=== PATIENT | female | born 1980 | race Caucasian/White ===

== ENCOUNTER 2018-07-26 13:53 | Emergency (ER) | payer OTHER ==
[2018-07-26 13:57] VITALS: TEMP 98.4
[2018-07-26] MEDS ORDERED: ceFAZolin 1,000 MG VIAL IM STA (14:49)
--- NOTE | 2018-07-26 14:57 | ED ---
General Adult HPI - General Chief complaint: Wound/Laceration Stated complaint: thumb lac/infection Time Seen by Provider: 07/26/18 14:33 Source: patient, RN notes reviewed Mode of arrival: ambulatory Limitations: no limitations - History of Present Illness Initial comments: This a 38-year-old female who denies any past medical history presenting today for chief complaint of redness of right thumb x 3 days. Patient states that last Thursday she had cut the lateral aspect of her right thumb along the ventral surface. She stated that with deep enough for sutures and did not seek medical attention. On Thursday she noticed itchiness, redness and warmth around the area of the lacerations, since area of the redness is spreading. She noticed the redness for the upper arm she was concerned for infection and decided percent to emergency department today. Patient denies any fever, chills, general malaise, drainage or abscess. Remainder of ROS (-). - Related Data Previous Rx's Medication Instructions Recorded Cephalexin [Keflex] 500 mg PO Q6HR 7 Days #28 cap 07/26/18 Allergies Allergy/AdvReac Type Severity Reaction Status Date / Time No Known Allergies Allergy Verified 07/26/18 15:19 Review of Systems ROS Statement: Those systems with pertinent positive or pertinent negative responses have been documented in the HPI. ROS Other: All systems not noted in ROS Statement are negative. Constitutional: Denies: fever, chills, weakness Respiratory: Denies: cough, dyspnea Cardiovascular: Denies: chest pain Gastrointestinal: Denies: abdominal pain, nausea, vomiting Genitourinary: Denies: urgency, dysuria Musculoskeletal: Denies: back pain Skin: Reports: as per HPI Neurological: Denies: headache, weakness, numbness, paresthesias, confusion Past Medical History Past Medical History: No Reported History History of Any Multi-Drug Resistant Organisms: None Reported Past Surgical History: No Surgical Hx Reported Past Psychological History: No Psychological Hx Reported Smoking Status: Current every day smoker Past Alcohol Use History: Occasional Past Drug Use History: None Reported General Exam - General Exam Comments Initial Comments: General: The patient is awake and alert, in no distress, and does not appear acutely ill. Eye: Pupils are equal, round and reactive to light, extra-ocular movements are intact. No nystagmus. There is normal conjunctiva bilaterally. No signs of icterus. Ears, nose, mouth and throat: There are moist mucous membranes and no oral lesions. Neck: The neck is supple, there is no tenderness or JVD. Cardiovascular: There is a regular rate and rhythm. No murmur, rub or gallop is appreciated. Respiratory: Lungs are clear to auscultation, respirations are non-labored, breath sounds are equal. No wheezes, stridor, rales, or rhonchi. Musculoskeletal: Normal ROM, no tenderness. Strength 5/5. Sensation intact. Pulses equal bilaterally 2+. Neurological: A&O x 3. CN II-XII intact, There are no obvious motor or sensory deficits. Coordination appears grossly intact. Speech is normal. Skin: Skin is warm and dry and no rashes or lesions are noted. Psychiatric: Cooperative, appropriate mood & affect, normal judgment. Limitations: no limitations Course Vital Signs 07/26/18 07/26/18 13:55 15:18 Temperature 98.4 F 98.4 F Pulse Rate 108 H 88 Respiratory 20 16 Rate Blood Pressure 145/84 137/81 O2 Sat by Pulse 100 99 Oximetry Medical Decision Making - Medical Decision Making 38yo with cc of erythema s/p laceration concerning for cellulitis. Upon physical examination there appears to be a laceration to the ventral aspect of the right thumb with surrounding erythema that is spreading towards the proximal forearm. Pt denies systemic symptoms. Pt VS stable. Repeat HR 88 after initial 106. Case discussed with Dr. Tate. Pt given 2g cefazolin IM and will be discharged with RX for bactrim ds q12h and keflex TID for staph and strep coverage. Pt was instructed to return to the ED for any fever, chills, nightsweats, rapid spread of infection. Pt agreed with plan. All patient's questions were answered to the best of my ability and patient was discharged in stable condition with PCP f/u in 1-2 days. Disposition Clinical Impression: Cellulitis of thumb, right Disposition: HOME SELF-CARE Condition: Good Instructions: Cellulitis (ED) Additional Instructions: Please use medication as discussed. Please follow-up with family doctor in the next 2 days. Please return to emergency room if the symptoms increase or worsen or for any other concerns, as discussed including rapidly progressing spread of erythema, fever, chills. Prescriptions: Cephalexin [Keflex] 500 mg PO Q6HR 7 Days #28 cap Is patient prescribed a controlled substance at d/c from ED?: No Referrals: Marisol Marsh DO [Primary Care Provider] - 1-2 days Time of Disposition: 14:56
[2018-07-26 15:19] VITALS: BP 137/81; PULSE 88; RESP 16
== END 2018-07-26 15:45 | disposition home or self-care (01) ==
LOC: EC 13:53
DX: L03.011 Cellulitis of right finger (principal); F17.200 Nicotine dependence, unspecified, uncomplicated
CPT/HCPCS: 99282; 96372; J0690

== ENCOUNTER 2018-08-03 08:53 | Observation (INO) | payer OTHER ==
[2018-08-03] MEDS ORDERED: ASPIRIN 81 MG PO STA (09:26)
[2018-08-03] MEDS ORDERED: NITROGLYCERIN OINT 1 INCH/GM PACKET TOPICAL STA (09:26)
--- NOTE | 2018-08-03 09:29 | ED ---
General Adult HPI - General Chief complaint: Chest Pain Stated complaint: Chest pain Time Seen by Provider: 08/03/18 09:05 Source: patient, RN notes reviewed Mode of arrival: wheelchair Limitations: no limitations - History of Present Illness Initial comments: Patient is a pleasant 38-year-old female presenting to the emergency Department with complaints of chest discomfort. Onset of symptoms was for 5 days ago. Symptoms have been intermittent. Discomfort became more severe earlier this morning. Discomfort has improved and is now mild. Discomfort feels like pressure in the left chest. Discomfort is somewhat worse with deep inspiration. There is some associated nausea. No diaphoresis. No dyspnea. Patient did have some tingling in her right hand earlier. No history of similar symptoms previously. No fevers. No rash. Patient did have an infection of her right hand a couple weeks ago with streaking up the arm however that has resolved. - Related Data Home Medications Medication Instructions Recorded Confirmed Aspirin EC [Ecotrin] 325 mg PO ONCE PRN 08/03/18 08/03/18 Sulfamethox-Tmp 800-160Mg [Bactrim 1 tab PO Q12HR 08/03/18 08/03/18 DS 800-160 mg] Previous Rx's Medication Instructions Recorded Cephalexin [Keflex] 500 mg PO Q6HR 7 Days #28 cap 07/26/18 Allergies Allergy/AdvReac Type Severity Reaction Status Date / Time No Known Allergies Allergy Verified 08/03/18 09:19 Review of Systems ROS Statement: Those systems with pertinent positive or pertinent negative responses have been documented in the HPI. ROS Other: All systems not noted in ROS Statement are negative. Constitutional: Denies: fever, chills Eyes: Denies: eye pain ENT: Denies: ear pain Respiratory: Denies: cough, dyspnea Cardiovascular: Reports: chest pain Endocrine: Denies: fatigue Gastrointestinal: Reports: nausea. Denies: abdominal pain Genitourinary: Denies: dysuria Musculoskeletal: Denies: back pain Skin: Denies: rash Neurological: Denies: weakness Past Medical History Past Medical History: No Reported History History of Any Multi-Drug Resistant Organisms: None Reported Past Surgical History: No Surgical Hx Reported Past Psychological History: No Psychological Hx Reported Smoking Status: Current every day smoker Past Alcohol Use History: Occasional Past Drug Use History: None Reported General Exam Limitations: no limitations General appearance: alert, in no apparent distress Head exam: Present: atraumatic Eye exam: Present: normal appearance Neck exam: Present: normal inspection Respiratory exam: Present: normal lung sounds bilaterally. Absent: chest wall tenderness Cardiovascular Exam: Present: regular rate, normal rhythm Expanded Peripheral pulses: 2+: Radial (R), Radial (L), Dorsalis Pedis (R), Dorsalis Pedis (L) GI/Abdominal exam: Present: soft. Absent: tenderness Extremities exam: Present: normal inspection. Absent: pedal edema, calf tenderness Neurological exam: Present: alert Psychiatric exam: Present: normal affect, normal mood Skin exam: Present: normal color, other (There is a small healing wound on the right thumb). Absent: rash Course Vital Signs 08/03/18 08/03/18 09:01 10:26 Temperature 98.3 F Pulse Rate 98 84 Respiratory 18 18 Rate Blood Pressure 145/89 123/62 O2 Sat by Pulse 98 98 Oximetry EKG Findings - EKG Comments: EKG Findings:: Normal sinus rhythm 93. AR 132. QRS 88. QT 362. QTC 450. Cash. RSR V1 and V2. No acute ST change. Medical Decision Making - Medical Decision Making Patient reevaluated and resting comfortably in bed. Patient is still having some discomfort. Patient and family updated on results and plan. Case discussed in detail with Dr. Marie, who will admit for Dr. Marsh. - Lab Data Result diagrams: 08/03/18 09:18 08/03/18 09:18 Lab Results 08/03/18 08/03/18 08/03/18 Range/Units 09:18 09:18 09:18 WBC 12.7 H (3.8-10.6) k/uL RBC 4.10 (3.80-5.40) m/uL Hgb 13.9 (11.4-16.0) gm/dL Hct 43.4 (34.0-46.0) % MCV 105.9 H (80.0-100.0) fL MCH 34.0 (25.0-35.0) pg MCHC 32.1 (31.0-37.0) g/dL RDW 12.5 (11.5-15.5) % Plt Count 295 (150-450) k/uL Neutrophils % 83 % Lymphocytes % 7 % Monocytes % 6 % Eosinophils % 2 % Basophils % 0 % Neutrophils # 10.5 H (1.3-7.7) k/uL Lymphocytes # 0.9 L (1.0-4.8) k/uL Monocytes # 0.8 (0-1.0) k/uL Eosinophils # 0.3 (0-0.7) k/uL Basophils # 0.0 (0-0.2) k/uL Macrocytosis Slight PT (9.0-12.0) sec INR (<1.2) APTT (22.0-30.0) sec D-Dimer (<0.60) mg/L FEU Sodium 140 (137-145) mmol/L Potassium 4.4 (3.5-5.1) mmol/L Chloride 106 (98-107) mmol/L Carbon Dioxide 19 L (22-30) mmol/L Anion Gap 15 mmol/L BUN 6 L (7-17) mg/dL Creatinine 0.63 (0.52-1.04) mg/dL Est GFR (CKD-EPI)AfAm >90 (>60 ml/min/1.73 sqM) Est GFR (CKD-EPI)NonAf >90 (>60 ml/min/1.73 sqM) Glucose 114 H (74-99) mg/dL Calcium 9.0 (8.4-10.2) mg/dL Magnesium 1.9 (1.6-2.3) mg/dL Total Bilirubin 0.5 (0.2-1.3) mg/dL AST 48 H (14-36) U/L ALT 54 H (9-52) U/L Alkaline Phosphatase 80 (38-126) U/L Total Creatine Kinase 77 (30-135) U/L CK-MB (CK-2) 0.5 (0.0-2.4) ng/mL CK-MB (CK-2) Rel Index 0.6 Troponin I <0.012 (0.000-0.034) ng/mL Total Protein 8.0 (6.3-8.2) g/dL Albumin 4.6 (3.5-5.0) g/dL 08/03/18 Range/Units 09:18 WBC (3.8-10.6) k/uL RBC (3.80-5.40) m/uL Hgb (11.4-16.0) gm/dL Hct (34.0-46.0) % MCV (80.0-100.0) fL MCH (25.0-35.0) pg MCHC (31.0-37.0) g/dL RDW (11.5-15.5) % Plt Count (150-450) k/uL Neutrophils % % Lymphocytes % % Monocytes % % Eosinophils % % Basophils % % Neutrophils # (1.3-7.7) k/uL Lymphocytes # (1.0-4.8) k/uL Monocytes # (0-1.0) k/uL Eosinophils # (0-0.7) k/uL Basophils # (0-0.2) k/uL Macrocytosis PT 9.5 (9.0-12.0) sec INR 1.0 (<1.2) APTT 24.1 (22.0-30.0) sec D-Dimer 0.54 (<0.60) mg/L FEU Sodium (137-145) mmol/L Potassium (3.5-5.1) mmol/L Chloride (98-107) mmol/L Carbon Dioxide (22-30) mmol/L Anion Gap mmol/L BUN (7-17) mg/dL Creatinine (0.52-1.04) mg/dL Est GFR (CKD-EPI)AfAm (>60 ml/min/1.73 sqM) Est GFR (CKD-EPI)NonAf (>60 ml/min/1.73 sqM) Glucose (74-99) mg/dL Calcium (8.4-10.2) mg/dL Magnesium (1.6-2.3) mg/dL Total Bilirubin (0.2-1.3) mg/dL AST (14-36) U/L ALT (9-52) U/L Alkaline Phosphatase (38-126) U/L Total Creatine Kinase (30-135) U/L CK-MB (CK-2) (0.0-2.4) ng/mL CK-MB (CK-2) Rel Index Troponin I (0.000-0.034) ng/mL Total Protein (6.3-8.2) g/dL Albumin (3.5-5.0) g/dL - Radiology Data Radiology results: image reviewed (Chest x-ray shows no acute process) Disposition Clinical Impression: Chest pain Disposition: ADMITTED IP TO THIS HOSP Is patient prescribed a controlled substance at d/c from ED?: No Referrals: Marisol Marsh DO [Primary Care Provider] - 1-2 days Decision Time: 12:11
[2018-08-03 09:39] LABS: Basophils % (A) 0 %; Eosinophils # (A) 0.3 k/uL (0-0.7); Eosinophils % (A) 2 %; HCT 43.4 % (34.0-46.0); HGB 13.9 gm/dL (11.4-16.0); Lymphocytes # (A) 0.9 k/uL (1.0-4.8); Lymphocytes % (A) 7 %; MCHC 32.1 g/dL (31.0-37.0); MCV 105.9 fL (80.0-100.0); Macrocytosis Slight; Mean Platelet Volume 6.7; Monocytes # (A) 0.8 k/uL (0-1.0); Monocytes % (A) 6 %; Neutrophils # (A) 10.5 k/uL (1.3-7.7); Neutrophils % (A) 83 %; Platelet Count 295 k/uL (150-450); RDW 12.5 % (11.5-15.5); WBC 12.7 k/uL (3.8-10.6)
[2018-08-03 09:47] LABS: ALT 54 U/L (9-52); AST 48 U/L (14-36); Albumin 4.6 g/dL (3.5-5.0); Alkaline Phosphatase 80 U/L (38-126); Anion Gap 15 mmol/L; Blood Urea Nitrogen 6 mg/dL (7-17); Carbon Dioxide 19 mmol/L (22-30); Chloride 106 mmol/L (98-107); Glucose 114 mg/dL (74-99); Magnesium 1.9 mg/dL (1.6-2.3); Potassium 4.4 mmol/L (3.5-5.1); Sodium 140 mmol/L (137-145); Total Bilirubin 0.5 mg/dL (0.2-1.3)
--- NOTE | 2018-08-03 09:49 | XR ---
EXAMINATION TYPE: XR chest 2V DATE OF EXAM: 08/03/2018 COMPARISON: None INDICATION: Chest pain, chest pressure on inspiration TECHNIQUE: Frontal and lateral views of the chest are obtained. FINDINGS: The heart size is normal. The pulmonary vasculature is normal. The lungs are clear. IMPRESSION: 1. No acute pulmonary process.
[2018-08-03 09:51] LABS: D-Dimer 0.54 mg/L FEU (<0.60); Partial Thromboplastin Time 24.1 sec (22.0-30.0); Prothrombin Time 9.5 sec (9.0-12.0)
[2018-08-03 10:01] LABS: Creatine Kinase 77 U/L (30-135)
[2018-08-03 10:14] LABS: Creatine Kinase MB 0.5 ng/mL (0.0-2.4); Troponin I <0.012 ng/mL (0.000-0.034)
[2018-08-03] MEDS ORDERED: NITROGLYCERIN SL TABS 0.4 MG TAB SUBLINGUAL PRN (12:11)
[2018-08-03 15:30] LABS: Creatine Kinase 59 U/L (30-135)
--- NOTE | 2018-08-03 15:37 | P.HPIM ---
History of Present Illness H&P Date: 08/03/18 Chief Complaint: chest Pain This is a 38-year-old female patient of Dr. Marsh. Patient presented to the emergency room with complaints of chest pain. Patient states that the pain has been occurring intermittently for the past 5 days. Pain feels like a pressure whenever she takes a deep breath. Patient is a smoker but does not have any other significant medical history. Patient denies any family history of cardiac events. D-dimer 0.54. Initial troponin negative. Chest x-ray completed showing no acute pulmonary process. EKG completed showing normal sinus rhythm. Cannot rule out anterior infarct, age undetermined. Cardiology services have been consulted. Patient was taking Keflex and Bactrim at home due to an infection in her right hand. Patient states she has one more day of antibiotics. Time patient does complain of chest pain with inspiration. Patient denies nausea vomiting or diarrhea. Patient denies any urinary running or frequency. Review of Systems Please refer to HPI otherwise unremarkable Past Medical History Past Medical History: Pneumonia Additional Past Medical History / Comment(s): recent cut to lt thumb currently on abx History of Any Multi-Drug Resistant Organisms: None Reported Past Surgical History: No Surgical Hx Reported Past Anesthesia/Blood Transfusion Reactions: No Reported Reaction Additional Past Anesthesia/Blood Transfusion Reaction / Comment(s): clausterphobia Smoking Status: Current every day smoker - Past Family History Mother History Unknown: Yes Additional Family Medical History / Comment(s): moms mom has heart disease Father Family Medical History: Diabetes Mellitus Medications and Allergies Home Medications Medication Instructions Recorded Confirmed Type Cephalexin [Keflex] 500 mg PO Q6HR 7 Days #28 cap 07/26/18 08/03/18 Rx Aspirin EC [Ecotrin] 325 mg PO ONCE PRN 08/03/18 08/03/18 History Sulfamethox-Tmp 800-160Mg [Bactrim 1 tab PO Q12HR 08/03/18 08/03/18 History DS 800-160 mg] Allergies Allergy/AdvReac Type Severity Reaction Status Date / Time No Known Allergies Allergy Verified 08/03/18 09:19 Physical Exam Vitals: Vital Signs Temp Pulse Resp BP Pulse Ox 08/03/18 14:30 77 18 125/74 97 08/03/18 13:16 85 18 133/70 98 08/03/18 12:28 70 18 120/76 99 08/03/18 10:26 84 18 123/62 98 08/03/18 09:01 98.3 F 98 18 145/89 98 Intake and Output 08/03/18 08/03/18 08/03/18 06:59 14:59 22:59 Other: Weight 62.142 kg Head normocephalic Neck supple Lungs clear to auscultation bilaterally no wheezing or crackles Heart regular rate and rhythm S1-S2, no rub or gallop Abdomen is soft nontender nondistended positive bowel sounds no hepatosplenomegaly Extremities no edema Neuro alert and orientated to 3 Results CBC & Chem 7: 08/03/18 09:18 08/03/18 09:18 Labs: Abnormal Lab Results - Last 24 Hours (Table) 08/03/18 08/03/18 Range/Units :18 09:18 WBC 12.7 H (3.8-10.6) k/uL MCV 105.9 H (80.0-100.0) fL Neutrophils # 10.5 H (1.3-7.7) k/uL Lymphocytes # 0.9 L (1.0-4.8) k/uL Carbon Dioxide 19 L (22-30) mmol/L BUN 6 L (7-17) mg/dL Glucose 114 H (74-99) mg/dL AST 48 H (14-36) U/L ALT 54 H (9-52) U/L Assessment and Plan Assessment: 1. Chest pain. Initial troponin negative. D-dimer negative. Chest x-ray completed showing no acute pulmonary process. EKG completed showing normal sinus rhythm. Cannot rule out anterior infarct, age undetermined. Cardiology services have been consulted. 2. Nicotine dependence. She educated greater than 3 minutes on smoking cessation. Nicotine patch has been ordered 3. History of infected hand wound. Patient was taking Keflex and Bactrim at home. Will resume 4. Elevated liver enzymes AST 48 and ALT 54. Will order labs for a.m. DVT prophylaxis Lovenox. GI prophylaxis Protonix Time with Patient: Greater than 30 (Greater than 60% of the total time spent in counseling and coordination of care. I performed an examination of the patient and discussed their management with the Nurse Practitioner. I have reviewed the Nurse Practitioner's notes and agree with the documented findings and plan of care)
[2018-08-03 15:44] LABS: Creatine Kinase MB <0.2 ng/mL (0.0-2.4); Troponin I <0.012 ng/mL (0.000-0.034)
[2018-08-03] MEDS: NICOTINE 14MG/24HR PATCH TRANSDERM SCH (16:19)
[2018-08-03] MEDS ORDERED: ACETAMINOPHEN TAB 500 MG TAB PO STA (16:51)
[2018-08-03] MEDS ORDERED: CEPHALEXIN 500 MG CAP PO SCH (18:00)
[2018-08-03] MEDS: NITROGLYCERIN OINT 1 INCH/GM PACKET TOPICAL SCH ×2 (19:40→22:49)
[2018-08-03 19:48] LABS: Creatine Kinase 62 U/L (30-135)
[2018-08-03] MEDS ORDERED: ACETAMINOPHEN TAB 325 MG TAB PO PRN (19:50)
[2018-08-03 19:59] LABS: Creatine Kinase MB 0.2 ng/mL (0.0-2.4); Troponin I <0.012 ng/mL (0.000-0.034)
[2018-08-03] MEDS ORDERED: MORPHINE SULFATE 2 MG/ML SYRINGE IVP PRN (20:25)
[2018-08-03] MEDS ORDERED: ONDANSETRON 4 MG/2 ML VIAL IVP PRN (20:25)
[2018-08-03] MEDS ORDERED: SULFAMETHOX-TMP 800-160MG 1 EACH TAB PO SCH (21:00)
[2018-08-04] MEDS: NITROGLYCERIN OINT 1 INCH/GM PACKET TOPICAL SCH ×3 (06:32→18:01)
[2018-08-04 07:08] LABS: Basophils % (A) 0 %; Eosinophils # (A) 0.3 k/uL (0-0.7); Eosinophils % (A) 3 %; HCT 43.1 % (34.0-46.0); HGB 13.9 gm/dL (11.4-16.0); Lymphocytes # (A) 1.3 k/uL (1.0-4.8); Lymphocytes % (A) 16 %; MCH 33.8 pg (25.0-35.0); MCHC 32.3 g/dL (31.0-37.0); MCV 104.5 fL (80.0-100.0); Macrocytosis Slight; Mean Platelet Volume 7.3; Monocytes # (A) 0.7 k/uL (0-1.0); Monocytes % (A) 8 %; Neutrophils # (A) 5.7 k/uL (1.3-7.7); Neutrophils % (A) 71 %; Platelet Count 259 k/uL (150-450); RBC 4.12 m/uL (3.80-5.40); RDW 12.2 % (11.5-15.5); WBC 8.1 k/uL (3.8-10.6)
[2018-08-04 07:26] LABS: ALT 60 U/L (9-52); AST 64 U/L (14-36); Albumin 4.1 g/dL (3.5-5.0); Alkaline Phosphatase 90 U/L (38-126); Anion Gap 9 mmol/L; Blood Urea Nitrogen 8 mg/dL (7-17); Calcium 9.2 mg/dL (8.4-10.2); Carbon Dioxide 25 mmol/L (22-30); Chloride 102 mmol/L (98-107); Cholesterol 167 mg/dL (<200); Glucose 93 mg/dL (74-99); HDL Cholesterol 87 mg/dL (40-60); LDL Cholesterol,Calculated 68 mg/dL (0-99); Potassium 4.4 mmol/L (3.5-5.1); Sodium 136 mmol/L (137-145); Total Bilirubin 0.7 mg/dL (0.2-1.3); Total Protein 7.2 g/dL (6.3-8.2); Triglycerides 62 mg/dL (<150)
[2018-08-04] MEDS ORDERED: IBUPROFEN 400 MG TAB PO PRN (10:07)
[2018-08-04 10:29] LABS: Appearance,Urine Clear (Clear); Bacteria,Urine Rare /hpf; Bilirubin,Urine Negative (Negative); Blood,Urine Trace (Negative); Color,Urine Yellow; Glucose,Urine (UA) Negative (Negative); Ketones,Urine 2+ (Negative); Leukocyte Esterase,Urine Large (Negative); Mucus,Urine Few /hpf; Nitrite,Urine Negative (Negative); Protein,Urine Trace (Negative); RBC,Urine 3 /hpf (0-5); Squamous Epithelial Cell,Urine 4 /hpf (0-4); WBC,Urine 25 /hpf (0-5)
--- NOTE | 2018-08-04 11:51 | ECHOF ---
Referral Reason:cp MEASUREMENTS -------- HEIGHT: 165.1 cm WEIGHT: 60.3 kg BP: 150/68 RVIDd: 2.5 cm (< 3.3) IVSd: 1.1 cm (0.6 - 1.1) LVIDd: 3.2 cm (3.9 - 5.3) LVPWd: 1.0 cm (0.6 - 1.1) IVSs: 1.4 cm LVIDs: 2.0 cm LVPWs: 1.4 cm LAESV Index (A-L): 11.65 ml/m Ao Diam: 2.6 cm (2.0 - 3.7) AV Cusp: 1.9 cm (1.5 - 2.6) LA Diam: 2.1 cm (2.7 - 3.8) EPSS: 0.5 cm MV E [place]: 0.79 m/s MV DecT: 253 ms MV A [place]: 0.59 m/s MV E/A Ratio: 1.33 RAP: 5.00 mmHg RVSP: 20.07 mmHg MV EF SLOPE: 73.44 mm/s (70 - 150) MV EXCURSION: 1.73 cm (> 18.000) FINDINGS -------- Sinus rhythm. This was a technically good study. The left ventricular size is normal. Left ventricular wall thickness is normal. Overall left vent ricular systolic function is normal with, an EF between 55 - 60 %. The right ventricle is normal in size and function. Normal LA size by volume 22+/-6 ml/m2. The right atrium is normal in size. The aortic valve is trileaflet, and appears structurally normal. No aortic stenosis or regurgitation. The mitral valve is normal. There is trace mitral regurgitation. Trace tricuspid regurgitation present. Right ventricular systolic pressure is normal at < 35 mmHg. There is no evidence of pulmonary hypertension. The pulmonic valve is normal. The aortic root size is normal. Normal inferior vena cava with normal inspiratory collapse consistent with estimated right atrial pre ssure of 5 mmHg. There is no pericardial effusion. CONCLUSIONS -------- 1. Sinus rhythm. 2. This was a technically good study. 3. The left ventricular size is normal. 4. Left ventricular wall thickness is normal. 5. Overall left ventricular systolic function is normal with, an EF between 55 - 60 %. 6. Normal LA size by volume 22+/-6 ml/m2. 7. The aortic valve is trileaflet, and appears structurally normal. No aortic stenosis or regurgitati on. 8. There is trace mitral regurgitation. 9. Trace tricuspid regurgitation present. 10. Right ventricular systolic pressure is normal at < 35 mmHg. 11. There is no evidence of pulmonary hypertension. 12. The aortic root size is normal. 13. There is no pericardial effusion. RADIOLOGY RESIDENT: Jake Josue RDCS
[2018-08-04] MEDS: NICOTINE 14MG/24HR PATCH TRANSDERM SCH (12:15)
[2018-08-04] MEDS: PANTOPRAZOLE 40 MG TABLET PO SCH (12:16)
[2018-08-04] MEDS: ASPIRIN 325 MG TAB PO SCH (12:16)
[2018-08-04] MEDS: ENOXAPARIN 40 MG/0.4 ML SYRINGE SQ SCH ×2 (12:16→12:19)
--- NOTE | 2018-08-04 13:47 | P.PN ---
Subjective Progress Note Date: 08/04/18 This is a 38-year-old female patient of Dr. Marsh. Patient presented to the emergency room with complaints of chest pain. Patient states that the pain has been occurring intermittently for the past 5 days. Pain feels like a pressure whenever she takes a deep breath. Patient is a smoker but does not have any other significant medical history. Patient denies any family history of cardiac events. D-dimer 0.54. Initial troponin negative. Chest x-ray completed showing no acute pulmonary process. EKG completed showing normal sinus rhythm. Cannot rule out anterior infarct, age undetermined. Cardiology services have been consulted. Patient was taking Keflex and Bactrim at home due to an infection in her right hand. Patient states she has one more day of antibiotics. Time patient does complain of chest pain with inspiration. Patient denies nausea vomiting or diarrhea. Patient denies any urinary running or frequency. On 08/04/2018 patient is currently sleepy but alert and oriented resting in bed. Patient did have temperature 101.6 last night. Patient was previously on antibiotics for right hand when that she obtained from a vegetable slicer. The urine culture and blood cultures have been ordered and patient was started on Rocephin IV antibiotic. Cardiology services consulted. Patient still complaining of left chest pain with coughing. Patient denies shortness of breath. Patient denies nausea vomiting. Patient does report that she's been having some diarrhea over the past week. C. diff stool sample has been ordered. Patient denies any urinary burning or frequency. Objective - Vital Signs Vital signs: Vital Signs Temp 98.9 F 08/04/18 07:15 Pulse 82 08/04/18 12:00 Resp 16 08/04/18 12:00 BP 106/74 08/04/18 07:15 Pulse Ox 98 08/04/18 07:15 Intake & Output 08/03/18 08/04/18 08/04/18 18:59 06:59 18:59 Intake Total 100 Balance 100 Weight 60.6 kg 60.328 kg Intake: Oral 100 Other: Voiding Method Toilet # Voids 1 1 - Exam Head normocephalic Neck supple Lungs clear to auscultation bilaterally no wheezing or crackles Heart regular rate and rhythm S1-S2, no rub or gallop Abdomen is soft nontender nondistended positive bowel sounds no hepatosplenomegaly Extremities no edema. Right thumb wound healing. No signs of redness or signs of infection. Neuro alert and orientated to 3 - Labs CBC & Chem 7: 08/04/18 06:39 08/04/18 06:39 Labs: Abnormal Lab Results - Last 24 Hours (Table) 08/04/18 08/04/18 08/04/18 Range/Units 06:39 06:39 10:09 MCV 104.5 H (80.0-100.0) fL Sodium 136 L (137-145) mmol/L AST 64 H (14-36) U/L ALT 60 H (9-52) U/L HDL Cholesterol 87 H (40-60) mg/dL Urine Protein Trace H (Negative) Urine Ketones 2+ H (Negative) Urine Blood Trace H (Negative) Ur Leukocyte Esterase Large H (Negative) Urine WBC 25 H (0-5) /hpf Urine Bacteria Rare H (None) /hpf Urine Mucus Few H (None) /hpf Assessment and Plan Assessment: 1. Chest pain. Initial troponin negative. D-dimer negative. Chest x-ray completed showing no acute pulmonary process. EKG completed showing normal sinus rhythm. Cannot rule out anterior infarct, age undetermined. Cardiology services have been consulted. 2-D echo and stress tests have been ordered per cardiology services 2. Nicotine dependence. She educated greater than 3 minutes on smoking cessation. Nicotine patch has been ordered 3. History of infected hand wound. Patient was taking Keflex and Bactrim at home. Patient started on Rocephin IV antibiotics 4. Elevated liver enzymes AST 48 and ALT 54. Will order labs for a.m. AST 64 and ALT 60. Patient denies any alcohol use. 5. Febrile. Patient had a temp of 101.6 last night. Patient does report that she has some diarrhea over the past week. UA, urine culture, blood culture and C. diff stool sample has been ordered. Patient started on IV antibiotic Rocephin. UA showing large amount of leukocyte Estrace. DVT prophylaxis Lovenox. GI prophylaxis Protonix I performed an examination of the patient and discussed their management with the Nurse Practitioner. I have reviewed the Nurse Practitioner's notes and agree with the documented findings and plan of care
[2018-08-04] MEDS: cefTRIAXone IN SWFI 1,000 MG/10 ML SYRINGE IVP SCH (14:16)
--- NOTE | 2018-08-04 16:05 | CONS ---
CONSULTATION Mrs Esteban is a 38-year-old female who is admitted through the emergency room with a complaint of chest discomfort. The patient gives a history that she started having chest discomfort yesterday. The pain is in the left axillary area, dull aching pain. It increases with breathing. Patient denies any cough with expectoration. The patient denies any history of exertional chest pain or shortness of breath. The patient had a D-dimer which was 0.54 and the troponins are negative. PAST MEDICAL HISTORY: Past medical history includes no history of any major surgeries. SOCIAL HISTORY: Smoking history: Patient is currently everyday smoker. PHYSICAL EXAMINATION: Physical examination in the emergency room, this patient's vital signs were stable. Oxygen saturation was 98%. Respiratory rate was 18. Physical examination at present reveals blood pressure heart rate to be 90 per minute, blood pressure is 106/74 mmHg ENT examination is negative. Neck is supple. There is no increase in jugular venous pressure. Both the carotid pulses are felt. There is no bruit. Chest is symmetrical. Heart: The PMI is not felt. First and second heart sounds are normal. There is no evidence of any murmur. Lungs are clinically clear to auscultation and percussion. Abdomen is negative. Extremities: Peripheral pulses are 2+. EKG shows normal sinus rhythm without any acute ischemic changes. Troponins are normal. FINAL IMPRESSION: This patient is having atypical chest discomfort which is mostly pleuritic in nature. EKGs and cardiac enzymes are normal. The patient will be evaluated with echocardiogram and stress test and if the stress test is normal, patient can be discharged home on the symptomatic treatment. Thank you for this consultation. MMODL / IJN: [id number] /
--- NOTE | 2018-08-04 16:44 | ECHOS ---
STRESS ECHOCARDIOGRAM INDICATIONS: Chest pain. MEDICATIONS: Keflex. BASELINE HEART RATE: 98 BASELINE BLOOD PRESSURE: 150/68 MAXIMUM HEART RATE: 165 MAXIMUM BLOOD PRESSURE: 195/83 85% MPHR: 156 100% MPHR: 184 METS: 10.3 MAXIMUM STAGE REACHED: 3 TOTAL EXERCISE TIME: 9:00 CLINICAL INFORMATION: The patient was exercised for a total period of 9 minutes. Peak heart rate of 165 was achieved. Maximum blood pressure of 195/83 mmHg is noted. Resting EKG shows normal sinus rhythm with normal SD interval and QRS duration and normal ST-T waves. No ST- segment depression suggestive of ischemia is noted. The baseline echocardiographic images reveal normal left ventricular chamber size with normal left ventricular systolic function. In the immediate post-exercise period normal increase in the wall thickness and contractility is noted. FINAL IMPRESSION: This stress echocardiographic study is negative for stress-induced ischemia. EKG portion of the stress test is not suggestive of ischemia. Patient's exercise tolerance is normal. MMODL / IJN: [id number] /
[2018-08-05] MEDS: NITROGLYCERIN OINT 1 INCH/GM PACKET TOPICAL SCH ×3 (00:29→12:54)
[2018-08-05 06:54] LABS: Basophils % (A) 1 %; Eosinophils # (A) 0.2 k/uL (0-0.7); Eosinophils % (A) 4 %; HCT 46.1 % (34.0-46.0); HGB 14.7 gm/dL (11.4-16.0); Lymphocytes # (A) 1.7 k/uL (1.0-4.8); Lymphocytes % (A) 29 %; MCH 33.3 pg (25.0-35.0); MCHC 31.9 g/dL (31.0-37.0); MCV 104.6 fL (80.0-100.0); Macrocytosis Slight; Monocytes # (A) 0.5 k/uL (0-1.0); Monocytes % (A) 9 %; Neutrophils # (A) 3.1 k/uL (1.3-7.7); Neutrophils % (A) 53 %; Platelet Count 286 k/uL (150-450); RBC 4.41 m/uL (3.80-5.40); WBC 5.8 k/uL (3.8-10.6)
[2018-08-05 07:29] LABS: ALT 91 U/L (9-52); AST 101 U/L (14-36); Albumin 4.3 g/dL (3.5-5.0); Alkaline Phosphatase 101 U/L (38-126); Anion Gap 12 mmol/L; Blood Urea Nitrogen 9 mg/dL (7-17); Calcium 9.7 mg/dL (8.4-10.2); Carbon Dioxide 22 mmol/L (22-30); Chloride 104 mmol/L (98-107); Glucose 86 mg/dL (74-99); Potassium 4.5 mmol/L (3.5-5.1); Sodium 138 mmol/L (137-145); Total Bilirubin 0.6 mg/dL (0.2-1.3); Total Protein 7.8 g/dL (6.3-8.2)
[2018-08-05 08:21] VITALS: RESP 18
[2018-08-05] MEDS: PANTOPRAZOLE 40 MG TABLET PO SCH (09:27)
[2018-08-05] MEDS: NICOTINE 14MG/24HR PATCH TRANSDERM SCH (09:27)
[2018-08-05] MEDS: cefTRIAXone IN SWFI 1,000 MG/10 ML SYRINGE IVP SCH (09:27)
[2018-08-05] MEDS: ASPIRIN 325 MG TAB PO SCH (09:28)
[2018-08-05] MEDS: ENOXAPARIN 40 MG/0.4 ML SYRINGE SQ SCH (09:28)
--- NOTE | 2018-08-05 14:31 | US ---
EXAMINATION TYPE: US liver DATE OF EXAM: 08/05/2018 COMPARISON: None CLINICAL HISTORY: elevated AST and ALT. Abnormal labs. No pain. NPO. EXAM MEASUREMENTS: Liver Length: 16.1 cm. Normal less than 15.5 cm. Gallbladder Wall: 0.2 cm CBD: 0.5 cm CHD: 0.5 cm Right Kidney: 9.8 x 5.1 x 4.6 cm Pancreas: wnl Liver: wnl , no discrete masses or cysts. Gallbladder: wnl Evidence for sonographic Cross's sign: neg CBD: wnl CHD: wnl Right Kidney: wnl IMPRESSION: 1. Normal right upper quadrant ultrasound.
--- NOTE | 2018-08-05 15:16 | P.DS ---
Providers Date of admission: 08/03/18 12:11 Expected date of discharge: 08/05/18 Attending physician: Kun Marie Consults: 08/03/18 12:11 Consult Physician Urgent Consulting Provider: Bob De La Cruz Consult Reason/Comments: cp Do you want consulting provider notified?: Yes Primary care physician: Marisol Marsh Hospital Course: Discharge diagnosis 1. Chest pain. Initial troponin negative. D-dimer negative. Chest x-ray completed showing no acute pulmonary process. EKG completed showing normal sinus rhythm. Cannot rule out anterior infarct, age undetermined. Cardiology services have been consulted. 2-D echo and stress tests have been ordered per cardiology services. Stress echocardiogram study is negative for stress- induced ischemia. EKG portion of stress test is not suggestive for ischemia. Patient's exercise tolerance is normal. 2-D echo completed showing an EF of 55- 60%. Patient has been cleared for discharge from cardiology standpoint. 2. Nicotine dependence. She educated greater than 3 minutes on smoking cessation. Nicotine patch has been ordered 3. History of infected hand wound. Patient was taking Keflex and Bactrim at home. Patient started on Rocephin IV antibiotics 4. Elevated liver enzymes AST 48 and ALT 54. Will order labs for a.m. AST 64 and ALT 60. Patient denies any alcohol use. AST increasing to 101 and ALT 91. Liver ultrasound ordered. Liver ultrasound showing normal right upper quadrant. Order for Complete metabolic panel in 3 days and to follow-up closely with primary care provider. Patient advised to avoid acetaminophen. 5. Febrile. Patient had a temp of 101.6 last night. Patient does report that she has some diarrhea over the past week. UA, urine culture, blood culture and C. diff stool sample has been ordered. Patient started on IV antibiotic Rocephin. UA showing large amount of leukocyte Estrace. Culture showing no growth. Patient to finish home antibiotics of Keflex and Bactrim and then continue 3 days of an additional Bactrim for her urinary tract infection. At this time patient states she feels well has not been febrile. Hospital course This is a 38-year-old female patient of Dr. Marsh. Patient presented to the emergency room with complaints of chest pain. Patient states that the pain has been occurring intermittently for the past 5 days. Pain feels like a pressure whenever she takes a deep breath. Patient is a smoker but does not have any other significant medical history. Patient denies any family history of cardiac events. D-dimer 0.54. Initial troponin negative. Chest x-ray completed showing no acute pulmonary process. EKG completed showing normal sinus rhythm. Cannot rule out anterior infarct, age undetermined. Cardiology services have been consulted. Patient was taking Keflex and Bactrim at home due to an infection in her right hand. Patient states she has one more day of antibiotics. Time patient does complain of chest pain with inspiration. Patient denies nausea vomiting or diarrhea. Patient denies any urinary running or frequency. On 08/04/2018 patient is currently sleepy but alert and oriented resting in bed. Patient did have temperature 101.6 last night. Patient was previously on antibiotics for right hand when that she obtained from a [employer]. The urine culture and blood cultures have been ordered and patient was started on Rocephin IV antibiotic. Cardiology services consulted. Patient still complaining of left chest pain with coughing. Patient denies shortness of breath. Patient denies nausea vomiting. Patient does report that she's been having some diarrhea over the past week. Patient denies any urinary burning or frequency. On 08/05/2018 patient states she is feeling much improved. Patient denies any chest pain or shortness of breath. Has not had any fevers over the past couple days. AST and ALT continue to increase this a.m. liver ultrasound had been ordered. Liver ultrasound showing normal right upper quadrant. Patient is eager to go home. Patient has been cleared by cardiology services. Patient will be discharged home on home antibiotics plus an additional 3 days of Bactrim for UTI. Patient advised to avoid acetaminophen. Patient advised to follow-up closely with primary provider in regards to elevated liver enzymes. CMP ordered for 3 days. I performed an examination of the patient and discussed their management with the Nurse Practitioner. I have reviewed the Nurse Practitioner's notes and agree with the documented findings and plan of care Patient Condition at Discharge: Stable Plan - Discharge Summary Discharge Rx Participant: Yes New Discharge Prescriptions: New Nicotine 21Mg/24Hr Patch [Habitrol] 1 each TRANSDERM DAILY #30 patch Sulfamethox-Tmp 800-160Mg [Bactrim DS 800-160 mg] 1 tab PO Q12HR 3 Days #6 tab Continue Cephalexin [Keflex] 500 mg PO Q6HR 7 Days #28 cap Sulfamethox-Tmp 800-160Mg [Bactrim DS 800-160 mg] 1 tab PO Q12HR Aspirin EC [Ecotrin] 325 mg PO ONCE PRN PRN Reason: Pain Discharge Medication List Cephalexin [Keflex] 500 mg PO Q6HR 7 Days #28 cap 07/26/18 [Rx] Aspirin EC [Ecotrin] 325 mg PO ONCE PRN 08/03/18 [History] Sulfamethox-Tmp 800-160Mg [Bactrim DS 800-160 mg] 1 tab PO Q12HR 08/03/18 [ History] Nicotine 21Mg/24Hr Patch [Habitrol] 1 each TRANSDERM DAILY #30 patch 08/05/18 [ Rx] Sulfamethox-Tmp 800-160Mg [Bactrim DS 800-160 mg] 1 tab PO Q12HR 3 Days #6 tab 08/05/18 [Rx] Follow up Appointment(s)/Referral(s): Marisol Marsh DO [Primary Care Provider] - 1-2 days Bob De La Cruz MD [STAFF PHYSICIAN] - As Needed Ambulatory/Diagnostic Orders: Comprehensive Metabolic Panel [LAB.AMB] Time Frame: 3 Days, Location: None Selected Patient Instructions/Handouts: Chest Pain (ED) Discharge Disposition: HOME SELF-CARE
[2018-08-05 15:26] VITALS: BP 122/83; PULSE 77; TEMP 98.5
== END 2018-08-05 15:40 | disposition home or self-care (01) ==
LOC: EC 08:53 → 3OBS 12:11
PROVIDERS: ADMIT Internal Medicine; ATTEND Internal Medicine
DX: R07.89 Other chest pain (principal); R11.0 Nausea; R20.2 Paresthesia of skin; R74.8 Abnormal levels of other serum enzymes; R50.9 Fever, unspecified; R19.7 Diarrhea, unspecified; F17.200 Nicotine dependence, unspecified, uncomplicated; N39.0 Urinary tract infection, site not specified; Z87.01 Personal history of pneumonia (recurrent); L08.9 Local infection of the skin and subcutaneous tissue, unspecified; Z83.3 Family history of diabetes mellitus; Z82.49 Family history of ischemic heart disease and other diseases of the circulatory system
CPT/HCPCS: 93005 ×2; 96374; 96375 ×2; 96376; 99285; 36415; 93306; 93351; 85379; 80061; 80053 ×3; 82550; 82553; 83735; 84484; 85025 ×3; 85610; 85730; 81001; 87040; 87324; 87086; 87077; 87186; 71046; 76705; G0378 ×3; S4990 ×3; J2405; J0696 ×2; J2270

== ENCOUNTER → 2025-01-25 | Outpatient (CLI) | payer OTHER ==
--- NOTE | 2025-01-26 08:45 | MM ---
Reason for Exam: Screening (asymptomatic). Baseline mammogram. Patient History: Menarche at age 19. First Full-Term at age 29. Patient has history of breast feeding. Last menstrual period: 01/18/2025 Risk Values: Winifred 5 year model risk: 0.7%. NCI Lifetime model risk: 9.9%. Prior Study Comparison: Patient's first Mammogram. Tissue Density: The breasts are heterogeneously dense, which may obscure small masses. Findings: Analyzed By CAD. Right breast: There is no suspicious group of microcalcifications or new suspicious mass. Left breast: There is no suspicious group of microcalcifications or new suspicious mass. Overall Assessment: Negative, BI-RAD 1 Management: Screening Mammogram of both breasts in [address] [facility] will attempt to contact patient to return for supplemental views and ultrasound if indicated. Patient should continue monthly self-breast exams. A clinical breast exam by your physician is recommended on an annual basis. This exam should not preclude additional follow-up of suspicious palpable abnormalities. Note on Winifred scores and lifetime risk: 1. A Winifred score greater than 3% is considered moderate risk. If this is the case, consider specialist referral to assess eligibility for a risk reducing agent. 2. If overall lifetime risk for the development of breast cancer is 20% or higher, the patient may qualify for future screening with alternating mammogram and breast MRI. [facility], , 01/26/2025 8:42 AM. Electronically signed and approved by: Jordin Mejia DO
== END | disposition home or self-care (01) ==
LOC: RADMAMWWP 14:44
PROVIDERS: ATTEND Family Medicine
DX: Z12.31 Encounter for screening mammogram for malignant neoplasm of breast (principal); R92.333 Mammographic heterogeneous density, bilateral breasts
CPT/HCPCS: 77063; 77067